=== PATIENT | female | born 1975 | race Caucasian/White ===

== ENCOUNTER 2020-06-27 10:32 | Outpatient (CLI) | payer OTHER, SELFPAY ==
[2020-06-27 10:51] LABS: Basophils Absolute Auto 0.02 K/mm3 (0.00-0.10); Basophils Percent Auto 0.4 % (0.0-1.0); Eosinophils Absolute Auto 0.16 K/mm3 (0.02-0.50); Eosinophils Percent Auto 3.6 % (1.0-6.0); Hematocrit 36.6 % (35.0-49.0); Hemoglobin 11.2 g/dL (12.0-15.0); Immature Granulocyte Absolute 0.01 K/mm3 (0.00-0.00); Immature Granulocyte Percent A 0.2 % (0.0-0.0); Lymphocytes Absolute Auto 1.54 K/mm3 (1.10-4.50); Lymphocytes Percent Auto 34.5 % (18.0-42.0); Mean Corpuscular HGB Conc 30.6 g/dL (32.0-36.0); Mean Corpuscular Hemoglobin 25.3 pg (27.0-31.0); Mean Corpuscular Volume 82.8 fL (78.0-102.0); Mean Platelet Volume 9.6 fl (9.2-11.8); Monocytes Absolute Auto 0.28 K/mm3 (0.10-0.90); Monocytes Percent Auto 6.3 % (2.0-11.0); Neutrophils Absolute Auto 2.5 K/mm3 (1.7-7.2); Platelet Count Result 231 K/mm3 (150-420); Red Blood Count 4.42 M/mm3 (4.20-5.40); White Blood Count 4.5 K/mm3 (4.8-10.8)
[2020-06-27 11:13] LABS: SARS-CoV-2 Ag Negative (Negative)
[2020-06-27 12:19] LABS: Alanine Aminotransferase 21 U/L (14-59); Albumin Level 3.7 g/dL (3.4-5.0); Alkaline Phosphatase 69 U/L (46-116); Anion Gap 6 mmol/L (8-16); Aspartate Amino Transferase 13 U/L (15-37); Bilirubin,Total 0.2 mg/dL (0.00-1.00); Blood Urea Nitrogen 18 mg/dL (7-18); Calcium 8.4 mg/dL (8.5-10.1); Carbon Dioxide 29 mmol/L (21-32); Chloride 102 mmol/L (98-108); Estimated Glomerular Filt Rate > 60; Glucose 90 mg/dL (70-99); Magnesium 2.3 mg/dL (1.8-2.4); Osmolality Calculated 285 mOsm/kg (285-295); Potassium 4.2 mmol/L (3.5-5.1); Sodium 137 mmol/L (136-145); Total Protein 7.5 g/dL (6.4-8.2); Vitamin B12 410 pg/mL (193-986)
[2020-06-30 01:54] LABS: Methylmalonic Acid 137 nmol/L (87-318)
[2020-06-30 21:11] LABS: Hepatitis C RNA, Quant PCR <15 IU/mL
[2020-07-01 10:42] LABS: Vitamin D 25 Hydroxy 17 ng/mL (30-100)
== END 2020-06-27 10:33 | disposition home or self-care (01) ==
LOC: CHSLAB 10:36
PROVIDERS: PCP Family Medicine; Visit Provider Family Medicine
DX: B18.2 Chronic viral hepatitis C (principal); Z79.899 Other long term (current) drug therapy; D51.0 Vitamin B12 deficiency anemia due to intrinsic factor deficiency; J34.89 Other specified disorders of nose and nasal sinuses; E55.9 Vitamin D deficiency, unspecified; Z20.828 Contact with and (suspected) exposure to other viral communicable diseases
CPT/HCPCS: 36415; 80053; 82306; 82607; 83735; 83921; 85025; 87426; 87522

== ENCOUNTER 2021-04-23 10:13 | Emergency (ER) | payer OTHER, SELFPAY ==
--- NOTE | ~2021-04-23 | XR_ITS ---
EXAMINATION: XR chest 2V DATE: 04/23/2021 10:54 INDICATION: Cough and shortness of breath TECHNIQUE: PA and lateral views of the chest were obtained. COMPARISON: Chest radiograph and CT dated 03/27/2018 FINDINGS: The lungs remain clear with no focal airspace opacities, pulmonary edema, pleural effusion or pneumot horax. The cardiomediastinal silhouette is normal. Old healed lateral left fifth rib fractures. IMPRESSION: 1. No acute cardiopulmonary disease. Reviewed, dictated and finalized at location A.
[2021-04-23 10:27] VITALS: BP 121/91; PULSE 84; RESP 20; TEMP 36.6; O2SAT 98
--- NOTE | 2021-04-23 10:44 | ED.GENADULT ---
HPI - General Adult General Chief complaint: Upper Respiratory Infection Stated complaint: Chest Congestion,Cough,Headache,Sinus Source: patient Mode of arrival: ambulatory Limitations: no limitations History of Present Illness HPI narrative: 45 y/o female. PMHx Asthma, Bronchitis, Daily cigarette smoker. Presents to [facility] clinic today with acute complaints of nasal congestion, sore throat, intermittent non-productive cough and wheezing for the past 3 days. 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 No fever, dysphagia, dyspnea, involuntary drooling. No chest pain, hemoptysis. Pertinent immunization Hx includes Covid 19 vaccinated status. She remains without additional acute c/o illness upon exam. Related Data Home Medications Medication Instructions Recorded Confirmed omeprazole 20 mg PO DAILY 04/23/21 04/23/21 Allergies Allergy/AdvReac Type Severity Reaction Status Date / Time No Known Allergies Allergy Verified 04/23/21 10:49 Review of Systems Review of Systems: CONSTITUTIONAL: Denies fever, chills, sweats. EYES: Denies visual changes, redness, discharge. ENT: Positive rhinorrhea, congestion, sore throat. No otalgia. CARDIOVASCULAR: Denies chest pain, palpitations, edema. RESPIRATORY: Denies dyspnea. Positive wheezing, cough GASTROINTESTINAL: Denies abdominal pain, nausea, vomiting, diarrhea. GENITOURINARY: Denies dysuria, hematuria, abnormal discharge SKIN: Denies rash or itching. MUSCULOSKELETAL: Denies acute back pain, joint pain, or myalgia. NEUROLOGIC: Denies numbness, or focal weakness. PSYCHIATRIC: Denies anxiety or depression. All systems reviewed & are unremarkable except as noted in HPI and below Exam Narrative: GENERAL: This is a well-nourished, well-developed adult, in no apparent distress. HEAD: normocephalic, atraumatic. EYES: PERRL. Sclera clear/white. EARS: External ears normal, auditory canals clear and without drainage, TMs normal. NOSE: External nose normal. Positive Rhinorrhea, PND. No obstruction, nares patent. THROAT: Mucous membranes moist, posterior pharynx erythematous. No exudates. NECK: Neck supple, non-tender without lymphadenopathy, masses or thyromegaly. CARDIOVASCULAR: Regular rate and rhythm without murmurs, gallops, or rubs. RESPIRATORY: Upper airway Rhonchi, cleared with cough. Breath sounds equal bilaterally. No wheezes, rales. No acute respiratory distress. GASTROINTESTINAL: Abdomen soft, non-tender, nondistended. Bowel sounds are active. No guarding. SKIN: warm, intact with no suspicious lesions or rash, good texture and turgor. NEURO: Alert, active, and age appropriate. No focal neurologic deficits. EXTREMITIES: Negative. Course Vital Signs Vital signs: Vital Signs Temperature 36.6 C 04/23/21 10:27 Pulse Rate 84 04/23/21 10:27 Respiratory Rate 20 04/23/21 10:27 Blood Pressure 121/91 H 04/23/21 10:27 Pulse Oximetry 98 04/23/21 10:27 Temperature 36.6 C 04/23/21 10:27 Pulse Rate 84 04/23/21 10:27 Respiratory Rate 20 04/23/21 10:27 Blood Pressure 121/91 H 04/23/21 10:27 Pulse Oximetry 98 04/23/21 10:27 The patient has been informed that they may have pre-hypertension or Hypertension based on a BP reading in the clinic. It is recommended that the patient call the primary care provider listed on their discharge instructions or a physician of their choice as soon as possible (within 1-2week) to arrange follow up for further evaluation of possible pre-hypertension or hypertension. Medical Decision Making MDM Narrative Medical decision making narrative: -Rapid Strep & Covid 19 testing yield negative results. -Plain Film chest imaging reveals no acute cardiopulmonary disease. -Afebrile, normotensive, and most importantly no hypoxemia. -Start Amoxicillin, Medrol Dose PK, & Albuterol HFA as directed. W
== END 2021-04-23 11:20 | disposition home or self-care (01) ==
PROVIDERS: Emergency Provider Nurse Practitioner Adult Health; PCP Family Medicine
DX: J40 Bronchitis, not specified as acute or chronic (principal); J06.9 Acute upper respiratory infection, unspecified; Z20.822 Contact with and (suspected) exposure to COVID-19; J45.909 Unspecified asthma, uncomplicated; F17.210 Nicotine dependence, cigarettes, uncomplicated
CPT/HCPCS: 71046; 87081; 87426; 87880; 99213; C9803; G0463

== ENCOUNTER 2022-02-26 09:08 | Outpatient (CLI) | payer OTHER, SELFPAY ==
[2022-02-26] MEDS: IRON SUCROSE COMPLEX 300 MG in SODIUM CHLORIDE 0.9% IV 250 ML 125 MG IVPB (09:45)
[2022-02-26 09:46] VITALS: BMI 28.2
[2022-02-26] MEDS: ONDANSETRON INJ 4 MG/2 ML VIAL (09:57)
[2022-02-26 10:00] VITALS: BP 118/70; PULSE 60; RESP 14; TEMP 36.6; O2SAT 95
--- NOTE | 2022-02-26 11:42 | PC.NURSE ---
Patient here for IV Venofer #1 of 2. Patient states has IV Venofer in the past and get premedicated with something for nausea-never has had a problem with IV infusion. Dr. Mesa notified and received order for Zofran 4 mg IV pre Venofer. IV Zofran administered then IV Venofer administered SEE OCT. Tolerated well. Safe exit of hospital Will return 2021 for #2 of 2.
== END 2022-02-26 09:09 | disposition home or self-care (01) ==
LOC: CHSTREATRM 09:12
PROVIDERS: PCP Family Medicine; Visit Provider Family Medicine
DX: D50.9 Iron deficiency anemia, unspecified (principal); R11.0 Nausea
CPT/HCPCS: 96365; 96366; 96372; J1756; J2405; J7050

== ENCOUNTER 2022-03-12 09:44 | Outpatient (CLI) | payer OTHER, SELFPAY ==
[2022-03-12] MEDS: ONDANSETRON INJ 4 MG/2 ML VIAL IV PUSH (09:50)
[2022-03-12] MEDS: IRON SUCROSE COMPLEX 300 MG in SODIUM CHLORIDE 0.9% IV 250 ML 125 MG IVPB (09:55)
[2022-03-12 10:06] VITALS: BMI 28.2
[2022-03-12 10:17] VITALS: BP 105/61; PULSE 60; RESP 14; TEMP 36.6; O2SAT 98
--- NOTE | 2022-03-12 12:15 | PC.NURSE ---
Patient here for #2 of 2 IV Venofer infusions. Education given. Reports no problems from #1 few weeks ago. IV Venofer administered. SEE MAR. Tolerated well. Safe exit of hospital.
== END 2022-03-12 09:45 | disposition home or self-care (01) ==
LOC: CHSTREATRM 09:46
PROVIDERS: PCP Family Medicine; Visit Provider Family Medicine
DX: D50.9 Iron deficiency anemia, unspecified (principal); R11.0 Nausea
CPT/HCPCS: 96365; 96366; 96375; J1756; J2405; J7050

== ENCOUNTER 2023-12-05 10:18 | Outpatient (CLI) | payer OTHER, SELFPAY ==
--- NOTE | ~2023-12-05 | XR_ITS ---
XR hip RT min 2V 12/05/2023 10:45 Indication: Chronic right hip pain Procedure: 2 views right hip Comparison: No prior studies for comparison. Findings: There is moderate osteoarthritis of the right hip. No fracture, subluxation or dislocation. No soft tissue abnormality. There is a surgical clip in the right pelvis, likely from prior tubal li gation. Impression: 1: Moderate osteoarthritis of the right hip. Reviewed, dictated and finalized at location B. Impression: 1: Moderate osteoarthritis of the right hip.
[2023-12-05 10:38] LABS: Basophils Absolute Auto 0.03 K/mm3 (0.00-0.10); Basophils Percent Auto 0.6 % (0.0-1.0); Eosinophils Absolute Auto 0.38 K/mm3 (0.02-0.50); Eosinophils Percent Auto 7.1 % (1.0-6.0); Hematocrit 41.8 % (35.0-49.0); Hemoglobin 12.9 g/dL (12.0-15.0); Immature Granulocyte Absolute 0.01 K/mm3 (0.00-0.00); Immature Granulocyte Percent A 0.2 % (0.0-0.0); Lymphocytes Absolute Auto 1.52 K/mm3 (1.10-4.50); Lymphocytes Percent Auto 28.3 % (18.0-42.0); Mean Corpuscular HGB Conc 30.9 g/dL (32-36); Mean Corpuscular Hemoglobin 27.5 pg (27.0-31.0); Mean Corpuscular Volume 89.1 fL (78.0-102.0); Mean Platelet Volume 10.4 fl (9.2-11.8); Monocytes Absolute Auto 0.31 K/mm3 (0.10-0.90); Monocytes Percent Auto 5.8 % (2.0-11.0); Neutrophils Absolute Auto 3.13 K/mm3 (1.70-7.20); Platelet Count Result 185 K/mm3 (150-420); Red Blood Count 4.69 M/mm3 (4.20-5.40); Red Cell Distribution Width 14.2 % (11.6-14.4); White Blood Count 5.4 K/mm3 (4.8-10.8)
[2023-12-05 11:43] LABS: Alanine Aminotransferase 20 U/L (14-59); Albumin Level 3.5 g/dL (3.4-5.0); Alkaline Phosphatase 82 U/L (46-116); Anion Gap 7 mmol/L (4-12); Aspartate Amino Transferase 24 U/L (15-37); Bilirubin,Total 0.4 mg/dL (0.00-1.00); Blood Urea Nitrogen 7 mg/dL (7-18); Calcium 8.8 mg/dL (8.5-10.1); Carbon Dioxide 30 mmol/L (21-32); Chloride 105 mmol/L (98-108); Estimated Glomerular Filt Rate > 60; Ferritin 10 ng/mL (8-252); Glucose 93 mg/dL (70-99); Iron 33 ug/dL (50-170); Osmolality Calculated 292 mOsm/kg (285-295); Percent Iron Saturation 9 % (12-57); Potassium 4.6 mmol/L (3.5-5.1); Sodium 142 mmol/L (136-145); Total Protein 6.8 g/dL (6.4-8.2); Vitamin B12 189 pg/mL (193-986)
[2023-12-07 06:43] LABS: Vitamin D 25 Hydroxy 35 ng/mL (30-100)
== END 2023-12-05 10:19 | disposition home or self-care (01) ==
LOC: CHSLAB 10:22
PROVIDERS: PCP Family Medicine; Visit Provider Family Medicine
DX: D50.9 Iron deficiency anemia, unspecified (principal); K70.0 Alcoholic fatty liver; M25.551 Pain in right hip; M16.11 Unilateral primary osteoarthritis, right hip
CPT/HCPCS: 36415; 73502; 80053; 82306; 82607; 82728; 83540; 83550; 85025

== ENCOUNTER 2025-01-06 09:48 | Outpatient (CLI) | payer OTHER, SELFPAY ==
--- OUTSIDE RECORDS SUMMARY | 2025-01-06 09:54 | XMS_ITS | Clinical Summary ---
Author Organization [facility] Address [address] [place] [address] Care Team Providers Care Press Loader Name Role Phone Cecilia Mcneil NP Primary Care Provider [phone] Allergies Active Allergy Reactions Criticality Noted Date Comments Penicillins Rash Medium 12/29/2024 Tramadol Itching Low 03/27/2013 itchy Medications albuterol HFA (PROVENTIL HFA,VENTOLIN HFA,PROAIR HFA) 90 mcg/actuation inhalerIndicat ions:Bronchosp asm Prevention Inhale 2 puffs every 4 (four) hours as needed for wheezing 8.5 g 3 Active calcium carbonate (TUMS) 500 mg (200 mg elemental calcium) chewable tablet Take 1 tablet/chew tab (500 mg total) by mouth as needed for indigestion or heartburn Active diclofenac DR (VOLTAREN) 50 mg EC tabletIndicati ons:Pain Take 1 tablet (50 mg total) by mouth 3 (three) times a day as needed for pain 4 Active ergocalciferol (VITAMIN D) 50,000 unit capsule Take 1 capsule (50,000 Units total) by mouth once a week On Sundays 2 Active ferrous sulfate 325 mg (65 mg of elemental iron) tablet Take 1 tablet (65 mg of elemental iron total) by mouth daily with breakfast 2 Active venlafaxine XR (EFFEXOR-XR) 75 mg 24 hr capsuleIndicat ions:Anxiety with Depression Take 1 capsule (75 mg total) by mouth every morning 4 Active omeprazole (PriLOSEC) 40 mg capsule Take 1 capsule (40 mg total) by mouth daily with breakfast 4 Active gabapentin (NEURONTIN) 300 mg capsuleIndicat ions:Neuropath ic Pain Take 1 capsule (300 mg total) by mouth 3 (three) times a day 5 Active cyclobenzaprin e (FLEXERIL) 5 mg tabletIndicati ons:Muscle Spasm Take 1 tablet (5 mg total) by mouth 2 (two) times a day 5 Active propranoloL (INDERAL) 20 mg tablet Take 1 tablet (20 mg total) by mouth 2 (two) times a day as needed (anxiety) 5 Active hydrOXYzine (ATARAX) 50 mg tablet Take 1 tablet (50 mg total) by mouth 2 (two) times a day as needed for anxiety 5 Active HAIR, SKIN AND NAILS, BIOTIN, ORAL Take by mouth every morning Active magnesium gluconate 200 mg tabletIndicati ons:hypomagnes emia Take 1 tablet (200 mg total) by mouth every morning Active multivitamin tabletIndicati ons:Vitamin Deficiency Prevention Take 1 tablet by mouth every morning Active melatonin 5 mg tablet,chewabl e Take 10 mg by mouth nightly as needed (sleep) Active FLUoxetine (PROzac) 20 mg capsule Take 1 capsule (20 mg total) by mouth every morning 5 12/30/19 25 Discontin ued(Error ) propranoloL (INDERAL) 10 mg tablet Take 1 tablet (10 mg total) by mouth daily as needed 5 12/30/19 25 Discontin ued(Error ) Active Problems Problem Noted Date Diagnosed Date Primary osteoarthritis of right hip 11/17/2024 Encounters Date Type Department Care Team Description 12/31/2024 Telephone [facility] [address] [place] [address] Office [facility] [address] [place] [phone] Yovana Rodriguez MD 12/31/2024 Telephone [facility] [address] [place] [address] Office [facility] [address] [place] [phone] Yovana Rodriguez MD 12/29/2024 1:15 PM CDT Lab [facility] [address] [address] Preoperative testing; Primary osteoarthritis of right hip 12/29/2024 1:00 PM CDT Pre-Admission Testing [facility] Pre-Anesthesia Testing [address] [address] Preoperative testing (Primary Dx) 11/17/2024 8:45 AM CDT Office Visit [facility] [address] [facility] Building [address] [place] [phone] Yovana Rodriguez MD Right hip pain (Primary Dx) 11/17/2024 8:02 AM CDT - 11/17/2024 11:59 PM CDT Hospital Encounter [facility] [address] [facility] [address] [place] [phone] Right hip pain Discharge Disposition: Discharge to home or self care from Last 3 Months Immunizations Immunization Administration Dates Next Due Heplisav-b (Hepatitis B) 01/29/2024,12/29/2023 Surgical History Surgery Date Site/Laterality Comments GASTRIC BYPASS 08/11/1999 - 08/10/2000 N/A KNEE SURGERY 08/11/2013 - 08/10/2014 Left PERCUTANEOUS NEEDLE BIOPSY MUSCLE 06/18/2024 N/A Medical History Medical History Date Comments GERD (gastroesophageal reflux disease) Anemia Family History Medical History Relation Name Comments Magana Syndrome Father Vitaliy Anesthesia problems Neg Hx Relation Name Status Comments Father Vitaliy Alive Social History Tobacco Use Types Packs/Day Years Used Date Smoking Tobacco: Former Cigarettes Smokeless Tobacco: Never Tobacco Cessation:Counseling Given: Not Answered Personal Safety Answer Date Recorded Have you ever been in or are you currently in a harmful physical or emotional relationship or is someone making you feel afraid or unsafe? 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 Respiratory Rate 16 06/18/2024 8:36 AM CURRICULUM SUPERVISOR Oxygen Saturation 98% 12/29/2024 1:20 PM CDT Inhaled Oxygen Concentration - - Weight 97.1 kg (214 lb) 12/29/2024 1:20 PM CDT Height 170.2 cm (5' 7) 12/29/2024 1:20 PM CDT Body Mass Index 33.52 12/29/2024 1:20 PM CDT Plan of Treatment Upcoming Encounters Date Type Department Care Team (Latest Contact Info) Description 01/17/2025 7:15 AM CDT Hospital Encounter [facility] Operating Room [address] [place] [address] Yovana Rodriguez MD [address] [facility] [place] [address] 01/17/2025 7:15 AM CDT Anesthesia Event [facility] Operating Room [address] [place] [address] Alice Hawkins NP [address] [place] [address] 01/17/2025 7:15 AM CDT - 01/17/2025 9:50 AM CDT Surgery [facility] Operating Room [address] [place] [address] Yovana Rodriguez MD [address] [facility] [address] RIGHT ARTHROPLASTY TOTAL HIP - ANTERIOR APPROACH - VELYS NAVIGATION Scheduled Procedures Name Priority Associated Diagnoses Date/Ti me ARTHROPLASTY TOTAL HIP - ANTERIOR APPROACH Primary osteoarthritis of right hip 01/17/2025 7:15 AM CDT Health Maintenance Due Date Last Done Comments Depression Screening 1976 DTaP/Tdap/Td Vaccine (1 - Tdap) 1987 Regular Well Visit/Exam 18-64 1994 Breast Cancer Screening-Mammogram 03/11/2025 03/11/2024, 03/11/2024 Influenza Vaccine (Season Ended) 2025 Colon Cancer Screening-Colonoscopy 10/18/2025 10/19/2015 Hepatitis C Screening Completed 02/13/2021 , 02/05/2021 Hepatitis B Screening Completed 01/29/2024 , 12/29/2023 Pneumococcal vaccine <65 Aged Out No longer eligible based on patient's age to complete this topic Procedures Procedure Name Priority Date/Time Associated Diagnosis Comments EGFR Routine 12/29/2024 2:14 PM CDT Primary osteoarthritis of right hip DIFFERENTIAL AUTO Routine 12/29/2024 2:1 4 PM CDT Preoperative testing COTININE, SERUM Routine 12/29/2024 2:14 PM CDT Primary osteoarthritis of right hip VITAMIN D 25 HYDROXY Routine 12/29/2024 2:14 PM CDT Primary osteoarthritis of right hip HEMOGLOBIN A1C Routine 12/29/2024 2:14 PM CDT Primary osteoarthritis of right hip COMPREHENSIVE METABOLIC PANEL Routine 12/29/2024 2:14 PM CDT Primary osteoarthritis of right hip CBC WITH AUTO DIFFERENTIAL Routine 12/29/2024 2:14 PM CDT Preoperative testing NICOTINE METABOLITE SCREEN, URINE Routine 12/29/2024 2:14 PM CDT Primary osteoarthritis of right hip XR HIP RIGHT W PELVIS 2 OR 3 VIEWS Schedule Routine, Read Routine (OP Routine) 11/17/2024 8:17 AM CDT Right hip pain COLONOSCOPY IMAGES 10/19/2015 from Last 3 Months or Most Recently Relevant to Health Maintenance Results * eGFR (12/29/2024 2:14 PM CDT) eGFR >90 >=60 mL/min/1. 73 m2 Comment: Interpretive Data Reference Interval Normal >/= 90 mL/min/1.73m2 Mildly decreased* 60 - 89 mL/min/1.73m2 Mildly to moderately decreased 45 - 59 mL/min/1.73m2 Moderately to severely decreased 30 - 44 mL/min/1.73m2 Severely decreased 15 - 29 mL/min/1.73m2 Kidney Failure < 15 mL/min/1.73m2 *Relative to young adult level Estimated glomerular filtration rate is determined by the 2020 CKD-EPI equation recommended by the National Kidney Foundation (A Unifying Approach to GFR Estimation: Recommendations of the NKF-ASK Task Force on Reassessing the Inclusion of Race in Diagnosing Kidney Disease, JASN 2020). The CKD-EPI equation should not be used for patients with unstable renal function and has not been validated in children and those over 70. Current interpretive data was last reviewed 2021. Blood 12/29/2024 2:14 PM CDT 12/29/2024 2:39 PM CDT us Yvoana Sales MD LAB BLOOD ORDERABLES Final Result [facility] [address] [facility]. Department of Laboratories [place], [place] [id number] * Differential, auto (12/29/2024 2:14 PM CDT) Pathologist [facility] Neutrophil abs 3.84 1.50 - 6.50 K/cumm Imm gran abs 0.02 0.00 - 0.10 K/cumm [facility] Lymphocyte abs 1.65 0.80 - 3.30 K/cumm [facility] Monocyte abs 0.36 0.20 - 0.80 K/cumm [facility] Eosinophil abs 0.16 0.00 - 0.50 K/cumm [facility] Basophil abs 0.02 0.00 - 0.10 K/cumm [facility] Neutrophil pct 63.5 % [facility] Comment: Interpretive Data Percent cell count reference ranges are not reported, since discordance with absolute values may lead to misinterpretation of CBC data. Current Interpretive Data was last revised on 2017. Imm gran pct 0.3 % [facility] Comment: Interpretive Data Percent cell count reference ranges are not reported, since discordance with absolute values may lead to misinterpretation of CBC data. Current Interpretive Data was last revised on 2017. Lymphocyte pct 27.3 % [facility] Comment: Interpretive Data Percent cell count reference ranges are not reported, since discordance with absolute values may lead to misinterpretation of CBC data. Current Interpretive Data was last revised on 2017. Monocyte pct 6.0 % [facility] Comment: Interpretive Data Percent cell count reference ranges are not reported, since discordance with absolute values may lead to misinterpretation of CBC data. Current Interpretive Data was last revised on 2017. Eosinophil pct 2.6 % [facility] Comment: Interpretive Data Percent cell count reference ranges are not reported, since discordance with absolute values may lead to misinterpretation of CBC data. Current Interpretive Data was last revised on 2017. Basophil pct 0.3 % [facility] Comment: Interpretive Data Percent cell count reference ranges are not reported, since discordance with absolute values may lead to misinterpretation of CBC data. Current Interpretive Data was last revised on 2017. Blood 12/29/2024 2:14 PM CDT 12/29/2024 2:39 PM CDT us Alice Hawkins NP LAB BLOOD ORDERABLES Monet l Result [facility] [address] [facility] [address] * CBC with auto differential (12/29/2024 2:14 PM CDT) WBC 6.05 3.80 - 9.90 K/cumm Hgb 13.5 11.9 - 15.5 g/dL [facility] Hct 41.1 35.6 - 45.5 % [facility] Plt 218 150 - 400 K/cumm [facility] MPV 10.5 9.1 - 12.3 fL [facility] RBC 4.51 3.90 - 5.20 M/cumm [facility] MCV 91.1 81.3 - 96.4 fL [facility] MCH 29.9 27.1 - 33.3 pg [facility] MCHC 32.8 32.3 - 35.7 g/dL [facility] RDW CV 13.9 11.1 - 14.9 % [facility] RDW SD 46.7 35.7 - 48.1 fL [facility] NRBC abs 0.00 0.00 - 0.01 K/cumm [facility] Blood 12/29/2024 2:14 PM CDT 12/29/2024 2:39 PM CDT Alice Hawkins NP LAB BLOOD ORDERABLES Monet emanuel Result [facility] [address] [facility]. [place] [address] * (ABNORMAL) Cotinine level (12/29/2024 2:14 PM CDT) Nicotine <3.0 <3.0 ng/mL [facility] Cotinine, quant, sr 24(H) <3.0 ng/mL [facility] Comment: ADDITIONAL INFORMATION This test was developed and its performance characteristics determined by [facility] in a manner consistent with CLIA requirements. This test has not been cleared or approved by the U.S. Food and Drug Administration. Test Performed by: [facility] - [address] [address] [place]: Renée Perez Ph.D.; CLIA# [id number] Blood 12/29/2024 2:14 PM CDT 12/29/2024 2:39 PM CDT Yovana Sales MD LAB BLOOD ORDERABLES Final Result [facility] [address] [facility] [place] [address] [place] [facility] * Vitamin D 25 hydroxy (12/29/2024 2:14 PM CDT) Pathologist [facility] Vitamin D 25-OH 46 30 - 80 ng/mL Blood 12/29/2024 2:14 PM CDT 12/29/2024 2:39 PM CDT Yovana Sales MD LAB BLOOD ORDERABLES Final Result Performing Organization Address [facility] Co de Phone Number [facility] [address] [facility]. [facility] [place] [address] * Hemoglobin A1c (12/29/2024 2:14 PM CDT) [facility] Hgb A1C 5.4 4.0 - 5.6 % Estimated Average Glucose 108 mg/dL [facility] Comment: The ADA recommends reporting an estimated Average Glucose (eAG) with all Hemoglobin A1c results using the equation derived from a study of 507 normal and diabetic adults. Minority populations were underrepresented and children were not included. (Diabetes Care 31:1725-2558, 2008). The eAG is not equivalent to a fasting glucose. Blood 12/29/2024 2:14 PM CDT 12/29/2024 2:39 PM CDT Yovana Sales MD LAB BLOOD ORDERABLES Final Result Performing Organization Address City/[facility]/ZIP Co de Phone Number [facility] [address] [facility] [place] [address] * Comprehensive metabolic panel (12/29/2024 2:14 PM CDT) [facility] Sodium 141 135 - 145 mmol/L Potassium, pl 4.8 3.3 - 4.9 mmol/L [facility] Chloride 104 97 - 110 mmol/L [facility] CO2 27 22 - 32 mmol/L [facility] Anion gap 11 2 - 15 mmol/L [facility] BUN 13 6 - 25 mg/dL [facility] Creatinine 0.76 0.60 - 1.10 mg/dL [facility] Glucose 113 70 - 199 mg/dL [facility] Comment: Interpretive Data Fasting glucose >/= 126 mg/dl is diagnostic for diabetes. Fasting is defined as no caloric intake for at least 8 hours. Fasting glucose between 100 mg/dl to 125 mg/dl is diagnostic of prediabetes. In a patient with classic symptoms of hyperglycemia or hyperglycemic crisis, a random glucose >/= 200 mg/dl is diagnostic for diabetes. In the absence of unequivocal hyperglycemia, results should be confirmed by repeat testing. The classification and Diagnosis of Diabetes Diabetes Care 2021; 46: S19-S40. Current interpretive data was last revised 2022. Calcium 9.0 8.5 - 10.3 mg/dL [facility] Bilirubin, total 0.3 0.1 - 1.2 mg/dL [facility] Protein, pl 7.2 6.5 - 8.5 g/dL [facility] Albumin 4.4 3.5 - 5.0 g/dL [facility] Alk phos 92 40 - 130 Units/L [facility] ALT 16 7 - 45 Units/L [facility] AST 16 10 - 45 Units/L [facility] Blood 12/29/2024 2:1 4 PM CDT 12/29/2024 2:39 PM CDT us Yovana Sales MD LAB BLOOD ORDERABLES Final Result [facility] [address] [facility] [address] * (ABNORMAL) Nicotine metabolite screen, urine (12/29/2024 2:14 PM CDT) [facility] Nicotine, ur 668(H) <5.0 ng/mL [facility] Cotinine, ur 139(H) <5.0 ng/mL [facility] Anabasine ur <2.0 <2.0 ng/mL [facility] Comment: ADDITIONAL INFORMATION This test was developed and its performance characteristics determined by [facility] in a manner consistent with CLIA requirements. This test has not been cleared or approved by the U.S. Food and Drug Administration. Test Performed by: [facility] - [facility] [address] [place] [address] [place]: Renée Perez Ph.D.; CLIA# [id number] Nornicotine, ur 11(H) <2.0 ng/mL [facility] Urine 12/29/2024 2:14 PM CDT 12/29/2024 3:54 PM CDT Yovana Sales MD LAB URINE ORDERABLES Final Result [facility] [address] [facility] [address] [facility] [facility] * XR Hip Right 2 or 3 Views W Pelvis (11/17/2024 8:17 AM CDT) Anatomical Region Laterality Modality Lower Extremities, Hip, Pelvis Right C omputed Radiography 11/17/2024 8:19 AM CDT Impressions 11/17/2024 8:19 AM CDT 1. Moderate to severe right hip osteoarthritis. Electronically signed by: Leslie Maier MD Narrative 11/17/2024 8:19 AM CDT EXAMINATION: XR HIP RIGHT 2 OR 3 VIEWS W PELVIS HISTORY: Hip pain. FINDINGS: Comparison to 06/02/2024. Moderate to severe right hip osteoarthritis. No acute fracture. No dislocation. Surgical clip overlies the right pelvis. Procedure Note Leslie Maier MD - 11/17/2024 EXAMINATION: XR HIP RIGHT 2 OR 3 VIEWS W PELVIS HISTORY: Hip pain. FINDINGS: Comparison to 06/02/2024. Moderate to severe right hip osteoarthritis. No acute fracture. No dislocation. Surgical clip overlies the right pelvis. IMPRESSION: 1. Moderate to severe right hip osteoarthritis. Electronically signed by: Leslie Maier MD Yovana Sales MD IMG XR PROCEDURES Fin al Result * COLONOSCOPY IMAGES (10/19/2015) Anatomical Region Laterality Modality Other Narrative 10/19/2015 Ordered by an unspecified provider. Historical Provider GI PROCEDURE ORDERABLES F inal Result from Last 3 Months or Most Recently Relevant to Health Maintenance Insurance [facility] Care Teams Press Loader Relationship Specialty Start Date End Date Cecilia Mcneil NP [address] [place] [address] PCP - General Nurse Practitioner 11/03/24
--- OUTSIDE RECORDS SUMMARY | 2025-01-06 09:54 | XMS_ITS | Referral Summary ---
Author Organization [facility] Address [address] [place] [address] Care Team Providers Care Pilot Manager Name Role Phone Cecilia Mcneil NP Primary Care Provider [phone] Encounters Date Type Department Care Team Description 12/31/2024 Telephone [facility] Orthopaedic Surgery [address] [place] [address] 4 [address] [place] [phone] Yovana Rodriguez MD 12/31/2024 Telephone [facility] Orthopaedic Surgery [address] [place] [address] 4 [address] [place] [phone] Yovana Rodriguez MD 12/29/2024 1:15 PM CDT Lab [facility] [address] [address] [address] Preoperative testing; Primary osteoarthritis of right hip 12/29/2024 1:00 PM CDT Pre-Admission Testing [facility] Pre-Anesthesia Testing [address] [address] [address] Preoperative testing (Primary Dx) 11/17/2024 8:02 AM CDT - 11/17/2024 11:59 PM CDT Hospital Encounter [facility] [address] [place] [address] [address] [place] [phone] Right hip pain Discharge Disposition: Discharge to home or self care 11/17/2024 8:45 AM CDT Office Visit [facility] Orthopaedic Surgery [address] [facility] Building [address] [place] [address] Yovana Rodriguez MD Right hip pain (Primary Dx) from Last 3 Months Allergies Active Allergy Reactions Criticality Noted Date [...] Date Primary osteoarthritis of right hip 11/17/2024 Immunizations Immunization Administration Dates Next Due Heplisav-b (Hepatitis B) 01/29/2024,12/29/2023 Social History Tobacco Use Types Packs/Day Years [...] on file 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 Gender Identity Not on file Sexual Orientation Not on file Last Filed Vital Signs Vital Sign Reading Time Taken Comments Blood Pressure 119/76 12/29/2024 1:22 PM CDT Pulse 62 12/29/2024 1:20 PM CDT Temperature 37 C (98.6 F) 06/18/2024 8:36 AM 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 Respiratory Rate 16 06/18/2024 8:36 AM 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 Oxygen Saturation 98% 12/29/2024 1:20 PM CDT Inhaled Oxygen Concentration - - Weight 97.1 kg (214 lb) 12/29/2024 1:20 PM CDT Height 170.2 cm (5' 7) 12/29/2024 1:20 PM CDT Body Mass Index 33.52 12/29/2024 1:20 PM CDT Plan of Treatment Upcoming Encounters Date Type Department Care Team (Latest Contact Info) Description 01/17/2025 7:15 AM CDT Hospital Encounter [facility] Operating Room [address] [address] [address] Yovana Rodriguez MD [address] [facility] [place] [address] 01/17/2025 7:15 AM CDT Anesthesia Event [facility] Operating Room [address] [address] [address] Alice Hawkins NP [address] [place] [address] 01/17/2025 7:15 AM CDT - 01/17/2025 9:50 AM CDT Surgery [facility] Operating Room [address] [address] [address] Yovana Rodriguez MD [address] [facility] [place] [address] RIGHT ARTHROPLASTY TOTAL HIP - ANTERIOR APPROACH - VELYS NAVIGATION Scheduled Procedures Name Priority Associated Diagnoses Date/Ti me ARTHROPLASTY TOTAL HIP - ANTERIOR APPROACH Primary osteoarthritis of right hip 01/17/2025 7:15 AM CDT Procedures Procedure Name Priority Date/Time Associated Diagnosis [...] of Race in Diagnosing Kidney Disease, JASN 202). The CKD-EPI equation should not be used for patients with unstable renal function and has not been validated in children and those over 70. Current interpretive data was last reviewed 2021. Blood 12/29/2024 2:14 PM CDT 12/29/2024 2:39 PM CDT Yovana Sales MD LAB BLOOD ORDERABLES Final Result [facility] [address] [address]. [place] [address] * Differential, auto (12/29/2024 2:14 PM CDT) Neutrophil abs 3.84 1.50 - 6.50 K/cumm Imm gran abs 0.02 0.00 - 0.10 K/cumm [facility] Lymphocyte abs 1.65 0.80 - 3.30 K/cumm [facility] Monocyte abs 0.36 0.20 - 0.80 K/cumm [facility] Eosinophil abs 0.16 0.00 - 0.50 K/cumm [facility] Basophil abs 0.02 0.00 - 0.10 K/cumm [facility] Neutrophil pct 63.5 % [facility] Comment: Interpretive Data Percent cell count reference ranges are not reported, since discordance with absolute values may lead to misinterpretation of CBC data. Current Interpretive Data was last revised on 2017. Imm gran pct 0.3 % [facility] Comment: Interpretive Data Percent cell count reference ranges are not reported, since discordance with absolute values may lead to misinterpretation of CBC data. Current Interpretive Data was last revised on 2017. Lymphocyte pct 27.3 % [facility] Comment: Interpretive Data Percent cell count reference ranges are not reported, since discordance with absolute values may lead to misinterpretation of CBC data. Current Interpretive Data was last revised on 2017. Monocyte pct 6.0 % [facility] Comment: Interpretive Data Percent cell count reference ranges are not reported, since discordance with absolute values may lead to misinterpretation of CBC data. Current Interpretive Data was last revised on 2017. Eosinophil pct 2.6 % [facility] Comment: Interpretive Data Percent cell count reference ranges are not reported, since discordance with absolute values may lead to misinterpretation of CBC data. Current Interpretive Data was last revised on 2017. Basophil pct 0.3 % [facility] Comment: Interpretive Data Percent cell count reference ranges are not reported, since discordance with absolute values may lead to misinterpretation of CBC data. Current Interpretive Data was last revised on 2017. Blood 12/29/2024 2:14 PM CDT 12/29/2024 2:39 PM CDT Alice Hawkins NP LAB BLOOD ORDERABLES Monet l Result Performing Organization Address [facility]/ZIP Co de Phone Number [facility] [phone] [employer] [address] * CBC with auto differential (12/29/2024 2:14 PM CDT) WBC 6.05 3.80 - 9.90 K/cumm Hgb 13.5 11.9 - 15.5 g/dL [facility] Hct 41.1 35.6 - 45.5 % [facility] Plt 218 150 - 400 K/cumm [facility] MPV 10.5 9.1 - 12.3 fL [facility] RBC 4.51 3.90 - 5.20 M/cumm [facility] MCV 91.1 81.3 - 96.4 fL [facility] MCH 29.9 27.1 - 33.3 pg [facility] MCHC 32.8 32.3 - 35.7 g/dL [facility] RDW CV 13.9 11.1 - 14.9 % [facility] RDW SD 46.7 35.7 - 48.1 fL [facility] NRBC abs 0.00 0.00 - 0.01 K/cumm [facility] Blood 12/29/2024 2:14 PM CDT 12/29/2024 2:39 PM CDT Alice Hawkins NP LAB BLOOD ORDERABLES Monet l Result Performing Organization Address City/[facility]/ZIP Co de Phone Number [facility] [phone] [employer] [place] [address] * (ABNORMAL) Cotinine level (12/29/2024 2:14 PM CDT) [facility] Nicotine <3.0 <3.0 ng/mL [facility] Cotinine, quant, sr 24(H) <3.0 ng/mL [facility] Comment: ADDITIONAL INFORMATION This test was developed and its performance characteristics determined by [facility] in a manner consistent with CLIA requirements. This test has not been cleared or approved by the U.S. Food and Drug Administration. Test Performed by: [address] [address] [employer] Team Members: Renée Perez Ph.D.; CLIA# [id number] Blood 12/29/2024 2:14 PM CDT 12/29/2024 2:39 PM CDT Yovana Sales MD LAB BLOOD ORDERABLES Final Result Performing Organization Address City/[facility]/ZIP Co de Phone Number [facility] [address] [facility]. [place] [address] [address] [facility] * Vitamin D 25 hydroxy (12/29/2024 2:14 PM CDT) [facility] Vitamin D 25-OH 46 30 - 80 ng/mL Blood 12/29/2024 2:14 PM CDT 12/29/2024 2:39 PM CDT Yovana Sales MD LAB BLOOD ORDERABLES Final Result [facility] [address] [facility] [id number] [address] * Hemoglobin A1c (12/29/2024 2:14 PM CDT) [facility] Hgb A1C 5.4 4.0 - 5.6 % Estimated Average Glucose 108 mg/dL [facility] Comment: The ADA recommends reporting an estimated Average Glucose (eAG) with all Hemoglobin A1c results using the equation derived from a study of 507 normal and diabetic adults. Minority populations were underrepresented and children were not included. (Diabetes Care 31:8691-4768, 2008). The eAG is not equivalent to a fasting glucose. Blood 12/29/2024 2:14 PM CDT 12/29/2024 2:39 PM CDT us Yovana Sales MD LAB BLOOD ORDERABLES Final Result [facility] [address] [facility]. Department [place] [address] * Comprehensive metabolic panel (12/29/2024 2:14 PM CDT) Sodium 141 135 - 145 mmol/L Potassium, pl 4.8 3.3 - 4.9 mmol/L [facility] Chloride 104 97 - 110 mmol/L [facility] CO2 27 22 - 32 mmol/L [facility] Anion gap 11 2 - 15 mmol/L [facility] BUN 13 6 - 25 mg/dL [facility] Creatinine 0.76 0.60 - 1.10 mg/dL [facility] Glucose 113 70 - 199 mg/dL [facility] Comment: Interpretive Data Fasting glucose >/= [...] classification and Diagnosis of Diabetes Diabetes Care 202; 46: S19-S40. Current interpretive data was last revised 2022. Calcium 9.0 8.5 - 10.3 mg/dL [facility] Bilirubin, total 0.3 0.1 - 1.2 mg/dL [facility] Protein, pl 7.2 6.5 - 8.5 g/dL [facility] Albumin 4.4 3.5 - 5.0 g/dL [facility] Alk phos 92 40 - 130 Units/L [facility] ALT 16 7 - 45 Units/L [facility] AST 16 10 - 45 Units/L [facility] Blood 12/29/2024 2:14 PM CDT 12/29/2024 2:39 PM CDT Yovana Sales MD LAB BLOOD ORDERABLES Final Result Performing Organization Address City/[facility] Phone Number [facility] [address] [facility]. Department [place] [address] * (ABNORMAL) Nicotine metabolite screen, urine (12/29/2024 2:14 PM CDT) Pathologist [facility] Nicotine, ur 668(H) <5.0 ng/mL [facility] Lab Cotinine, ur 139(H) <5.0 ng/mL [facility] Anabasine ur <2.0 <2.0 ng/mL [facility] Comment: ADDITIONAL INFORMATION This test was developed and its performance characteristics determined by [facility] in a manner consistent with CLIA requirements. This test has not been cleared or approved by the U.S. Food and Drug Administration. Test Performed by: [facility] - [address] [address] [employer] Team Members: Renée Perez Ph.D.; CLIA# [id number] Nornicotine, ur 11(H) <2.0 ng/mL [facility] Urine 12/29/2024 2:14 PM CDT 12/29/2024 3:54 PM CDT Yovana Sales MD LAB URINE ORDERABLES Final Result [facility] [address] [facility]. Department [place] [address] [facility] * XR Hip Right 2 [...] Most Recently Relevant to Health Maintenance Insurance [facility] [employer] [facility] Care Teams Pilot Manager Relationship Specialty Start Date End Date Cecilia Mcneil NP [address] [place] [address] PCP - General Nurse Practitioner 11/03/24
--- NOTE | 2025-01-06 10:04 | ECG_ITS ---
Test Date: 2025-01-06 10:12:28 Measurements Intervals Stella Rate: 59 P: 53 TX: 172 QRS: 45 QRSD: 98 T: 67 QT: 423 QTc: 420 Interpretive Statements SINUS BRADYCARDIA LOW QRS VOLTAGE IN PRECORDIAL LEADS [QRS DEFLECTION < 1.0 mV IN CHEST LEADS] NONSPECIFIC T WAVE ABNORMALITY No previous ECG available for comparison Electronically Signed On 01-07-2025 10:59:05 CDT by Leonardo Perea M.D.
[2025-01-06 10:14] LABS: Basophils Absolute Auto 0.03 K/mm3 (0.00-0.10); Basophils Percent Auto 0.4 % (0.0-1.0); Eosinophils Absolute Auto 0.19 K/mm3 (0.02-0.50); Eosinophils Percent Auto 2.8 % (1.0-6.0); Hematocrit 39.3 % (35.0-49.0); Hemoglobin 12.6 g/dL (12.0-15.0); Immature Granulocyte Absolute 0.02 K/mm3 (0.00-0.00); Immature Granulocyte Percent A 0.3 % (0.0-0.0); Lymphocytes Percent Auto 29.1 % (18.0-42.0); Mean Corpuscular HGB Conc 32.1 g/dL (32-36); Mean Corpuscular Hemoglobin 29.4 pg (27.0-31.0); Mean Corpuscular Volume 91.8 fL (78.0-102.0); Mean Platelet Volume 10.4 fl (9.2-11.8); Monocytes Absolute Auto 0.34 K/mm3 (0.10-0.90); Monocytes Percent Auto 4.9 % (2.0-11.0); Neutrophils Percent Auto 62.5 % (50.0-70.0); Platelet Count Result 203 K/mm3 (150-420); Red Blood Count 4.28 M/mm3 (4.20-5.40); Red Cell Distribution Width 13.9 % (11.6-14.4); White Blood Count 6.9 K/mm3 (4.8-10.8)
[2025-01-06 10:50] LABS: Alanine Aminotransferase 19 U/L (6-35); Alkaline Phosphatase 72 U/L (38-126); Anion Gap 4 mmol/L (4-12); Aspartate Amino Transferase 24 U/L (14-36); Bilirubin,Total 0.4 mg/dL (0.2-1.3); Blood Urea Nitrogen 14 mg/dL (7-17); Calcium 8.8 mg/dL (8.4-10.2); Carbon Dioxide 28 mmol/L (22-30); Chloride 106 mmol/L (98-107); Cholesterol 215 mg/dL (0-200); Estimated Glomerular Filt Rate > 60; Glucose 123 mg/dL (65-110); HDL Direct 62 mg/dL; LDL Cholesterol Calculated 93 mg/dL (<130); Osmolality Calculated 287 mOsm/kg (285-295); Potassium 4.6 mmol/L (3.4-5.0); Sodium 138 mmol/L (137-145); Total Protein 6.4 g/dL (6.3-8.2); Triglycerides 300 mg/dL (<150)
== END 2025-01-06 09:49 | disposition home or self-care (01) ==
PROVIDERS: PCP Nurse Practitioner Family; Visit Provider Nurse Practitioner Family
DX: Z01.818 Encounter for other preprocedural examination (principal); M25.551 Pain in right hip; Z13.220 Encounter for screening for lipoid disorders; R00.1 Bradycardia, unspecified; R94.31 Abnormal electrocardiogram [ECG] [EKG]
CPT/HCPCS: 36415; 80053; 80061; 85025; 93005